=== PATIENT | female | born 1975 | race Caucasian/White ===

== ENCOUNTER 2017-04-26 16:43 | Inpatient (IN) ==
[2017-04-26] MEDS ORDERED: Ondansetron 4 MG/2 ML VIAL IVP ONE (19:17)
[2017-04-26] MEDS ORDERED: *HR* HYDROmorphone (PF) 1 MG/ML SYRINGE IVP ONE ×2 (19:17→21:45)
--- NOTE | 2017-04-26 19:19 | Emergency Department Note ---
Disposition Clinical Impression: Biliary dyskinesia, Right upper quadrant abdominal pain Disposition: Still a Patient Condition: Fair General Adult HPI - General Chief complaint: ED Abdominal Pain Stated complaint: Gastric pain Time Seen by Provider: 04/26/17 19:15 Source: patient Limitations: no limitations - History of Present Illness Pain Scale: 8 - Related Data Home Medications Medication Instructions Recorded Confirmed Atenolol [Tenormin] 25 mg PO DAILY 04/27/17 04/27/17 Dicyclomine [Bentyl] 20 mg PO QID 04/27/17 04/27/17 Duloxetine HCl [Cymbalta] 60 mg PO BID 04/27/17 04/27/17 Lactose-Reduced Food [Ensure 1 bottle PO AD 04/27/17 04/27/17 Active Clear] Losartan Potassium [Cozaar] 100 mg PO DAILY 04/27/17 04/27/17 Metformin HCl [Metformin HCl ER] 500 mg PO BID 04/27/17 04/27/17 Ondansetron [Zofran] 8 mg PO QID PRN 04/27/17 04/27/17 Oxycodone HCl/Acetaminophen 1 tab PO TID PRN 04/27/17 04/27/17 [Percocet 10-325 mg Tablet] Warfarin [Coumadin] 7.5 mg PO SUTUTHSA 04/27/17 04/27/17 Warfarin [Coumadin] 10 mg PO MOWEFR 04/27/17 04/27/17 hydrOXYzine HCl [Hydroxyzine HCl] 25 mg PO TID PRN 04/27/17 04/27/17 hydroCHLOROthiazide 12.5 mg PO DAILY 04/27/17 04/27/17 [Hydrochlorothiazide] Allergies Allergy/AdvReac Type Severity Reaction Status Date / Time morphine Allergy Itching Verified 04/27/17 08:40 amlodipine [From Norvasc] AdvReac See Verified 04/27/17 08:40 Comments metoclopramide [From Reglan] AdvReac Anxiety Verified 04/27/17 08:40 naproxen AdvReac Nausea Verified 04/27/17 08:40 Past Medical History - Past Medical History Medical history: Reports: DVT, diabetes, hypertension, kidney stones, other Surgical history: Reports: breast surgery Psychiatric history: Reports: depression STONE CLEANER history: Reports: no STONE CLEANER history - Social History Smoking Status: Never smoker Smokeless Tobacco Status: No Alcohol use: Reports: occasionally Drug use: Reports: none Physical Exam - General Limitations: no limitations General appearance: alert, in no apparent distress Course Vital Signs Temperature 97.9 F 04/26/17 17:36 Pulse Rate 100 04/26/17 17:36 Respiratory Rate 18 04/26/17 17:36 Blood Pressure 120/87 04/26/17 17:36 O2 Sat by Pulse Oximetry 98 04/26/17 17:36 Temperature 97.7 F 04/27/17 21:38 Pulse Rate 84 04/27/17 21:38 Respiratory Rate 17 04/27/17 21:38 Blood Pressure 139/85 04/27/17 21:38 O2 Sat by Pulse Oximetry 97 04/27/17 21:38 Oxygen Delivery Oxygen Delivery Room Air Medical Decision Making - Lab Data Result diagrams: 04/27/17 11:55 04/27/17 11:55 Lab Results 04/26/17 04/26/17 04/26/17 Range/Units 19:39 19:39 20:30 WBC 12.6 H (4.3-11.1) K/mcL RBC 5.11 H (3.82-4.97) M/mcL Hgb 14.6 (11.5-15.4) g/dL Hct 45.2 H (35.3-44.9) % MCV 88.5 (83.0-100.0) fL MCH 28.6 (28.0-33.3) pg MCHC 32.3 (31.6-35.5) g/dL RDW 14.4 (11.5-14.5) % Plt Count 527 H (140-400) K/mcL MPV 9.5 (9.4-12.4) fL Immature Gran % 0.3 (0-4) % Seg Neutrophils % 70.1 % Lymphocytes % 22.1 % Monocytes % 5.2 % Eosinophils % 2.1 % Basophils % 0.2 % Neutrophils # 8.8 (1.6-8.9) K/mcL Lymphocytes # 2.8 (0.6-4.6) K/mcL Monocytes # 0.7 (0.0-1.3) K/mcL Eosinophils # 0.3 (0.0-0.6) K/mcL Basophils # 0.0 (0.0-0.2) K/mcL PT 24.7 H (9.4-12.1) Seconds INR 2.3 Sodium 139 (136-145) mEq/L Potassium 4.3 (3.5-4.5) mEq/L Chloride 103 (98-109) mEq/L Carbon Dioxide 24 (19-29) mEq/L BUN 17 (7-20) mg/dL Creatinine 0.79 (0.57-1.11) mg/dL Est GFR ( Amer) > 60 (> 60) Est GFR (Non-Af Amer) > 60 (> 60) BUN/Creatinine Ratio 22 (6-26) Glucose 151 H (70-99) mg/dL Calculated Osmolality 292 (280-300) Calcium 9.5 (8.6-10.8) mg/dL Total Bilirubin < 0.2 L (0.2-1.2) mg/dL AST 17 (5-34) Units/L ALT 19 (0-55) Units/L Alkaline Phosphatase 137 H (38-126) Units/L Serum Total Protein 8.0 (6.0-8.3) g/dL Albumin 3.5 (3.5-5.0) g/dL Globulin 4.5 H (2.4-3.5) g/dL Albumin/Globulin Ratio 0.8 L (1.1-2.2) Lipase 22 (8-78) Units/L Attestation Statement - Attestation Attestation: I examined this patient and my medical decision-making was reviewed with the Resident Physician. I agree with the documented findings, disposition and treatment plan as described except to the extent set forth below. [id number] time provided Patient states she had a HIDA scan showing biliary ejection fraction of 9%. She was referred to follow-up with the [facility] for surgery but does not have a scheduled surgery appointment until later this month. She states she is taking analgesics and antiemetics without relief. She cannot tolerate the pain any longer. She is holding her hand over her right upper quadrant at the time of my exam. 22:12: Dr. Florence, surgery, has evaluated the patient at bedside. He recommends a gallbladder ultrasound. Care will be endorsed to Dr. Rome at 23:00 pending ultrasound and completion of surgical consultation
--- NOTE | 2017-04-26 19:26 | Emergency Department Note ---
Disposition Clinical Impression: Biliary dyskinesia, Right upper quadrant abdominal pain Disposition: Still a Patient Condition: Fair Instructions: Biliary Colic (ED) Reasons to Return/Additional Instructions: Return to the emergency department if your symptoms persist or if you develop any new or concerning symptoms. Please follow-up with your physicians at the [place]. Please call the person tomorrow morning to attempt to schedule an appointment in the next week with a general surgeon for continued evaluation and management of your biliary dyskinesia. [facility]errals: [facility] [Primary Care Provider] - Forms: ED Satisfaction Letter, Work/School Release Abdominal Pain HPI - General Chief Complaint: ED Abdominal Pain Stated Complaint: Gastric pain Time Seen by Provider: 04/26/17 19:15 Source: patient Nursing Notes Reviewed: Yes Vital Signs Reviewed: Yes - History of Present Illness HPI Narrative: Mrs. Drew, a 42-year-old female who is a patient from the [facility], presents with right upper quadrant pain. Her symptoms began several months ago. Patient has had CT scan showing biliary sludge. Patient recently had a HIDA scan showing biliary ejection fraction 9.8%. She was referred to [facility] for surgery but her appointment to see a surgeon is at the end of the month with unknown surgery date. She now has symptoms constant regardless of by mouth intake. She is taking antieemetics and analgesics with no relief of her pain. She presents this emergency department because of the pain. Anticoagulant: Coumadin PMH: Hypertension, diabetes, history DVT, history nephrolithiasis PSH: Tonsillectomy Habits: Never smoker, no EtOH, no illicit Pain Scale: 8 - Related Data Home Medications Medication Instructions Recorded Confirmed Duloxetine HCl [Cymbalta] 60 mg PO BID 09/16/15 05/30/16 Warfarin [Coumadin] 7.5 mg PO 1800 09/16/15 05/30/16 metFORMIN [Glucophage] 500 mg PO BIDWM 09/16/15 05/30/16 traMADol [Ultram] 50 mg PO Q6HR PRN 12/18/15 05/30/16 Previous Rx's Medication Instructions Recorded Losartan/Hydrochlorothiazide 1 each PO DAILY #30 tablet 01/16/16 [Hyzaar 100-12.5 Tablet] Ciprofloxacin [Cipro] 500 mg PO BID #14 tablet 05/31/16 Docusate [Colace] 100 mg PO BID #60 capsule 05/31/16 OxyCODONE Immed Rel [Roxicodone 5 10 mg PO Q4H PRN #25 tablet 05/31/16 MG] Cephalexin [Keflex] 500 mg PO BID #12 capsule 12/01/16 Hyoscyamine SL [Levsin SL] 0.125 mg SL TID PRN #15 tab.subl 02/11/17 Nitrofurantoin (BID) [Macrobid] 100 mg PO BID #10 capsule 02/11/17 Ondansetron HCl [Zofran] 4 mg PO Q6H PRN #12 tablet 02/11/17 Dicyclomine [Bentyl] 10 mg PO QID PRN #30 capsule 02/26/17 Nitrofurantoin (BID) [Macrobid] 100 mg PO BID #14 capsule 02/26/17 Ondansetron HCl [Zofran] 4 mg PO Q6HR PRN #20 tablet 02/26/17 Cephalexin [Keflex] 500 mg PO Q6HR #40 capsule 03/12/17 Hyoscyamine SL [Levsin SL] 0.125 mg SL TID #15 tab.subl 03/27/17 Ondansetron ODT [Zofran ODT] 4 mg SL Q6HR 6 Days #24 tab.rapdis 04/03/17 Ondansetron ODT [Zofran ODT] 4 mg SL Q8HR PRN #12 tab.rapdis 04/11/17 Nitrofurantoin (BID) [Macrobid] 100 mg PO BID #14 capsule 04/19/17 Allergies Allergy/AdvReac Type Severity Reaction Status Date / Time amlodipine [From Norvasc] Allergy See Verified 04/18/17 20:55 Comments morphine Allergy Itching Verified 04/18/17 20:55 naproxen Allergy Nausea Verified 04/18/17 20:55 metoclopramide [From Reglan] AdvReac Anxiety Verified 04/18/17 20:55 All systems ED: reviewed and negative except as stated. 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 HEENT: No facial asymmetry. Head is normocephalic and atraumatic. Oral mucosa moist. Trachea midline. Cardiovascular: Heart regular rate and rhythm without clicks, rubs, gallops, or murmurs. No JVD. PMI nondisplaced. Respiratory: Symmetric chest rise with good respiratory effort. Bilateral breath sounds are clear without wheezing, crackles, or rhonchi. Abdomen: Obese. Bowel sounds present normoactive x-4 quadrants. Abdomen is soft, nondistended. Exquisite right upper quadrant tenderness with positive Chaudhari. No guarding. Psych: Patient's affect is appropriate for situation. - General Limitations: no limitations General appearance: alert, in no apparent distress Course Course Narrative: Patient presents with right upper quadrant pain. She has had these symptoms for the last 2 months. [facility] and has a report showing a HIDA scan performed within the last month showing gallbladder ejection fraction of 9.8%. Patient notes that this was performed because the remainder of the tests were relatively unremarkable however symptoms persisted. She does not have a history of gallstones but notes a history of biliary sludge. Patient has mild leukocytosis with elevated alkaline phosphatase. Remainder of lab work is unremarkable. I discussed the patient with the on-call general surgeon, Dr. Florence. He agrees to see this patient while she is in the ER. Dr. Johns is been called away several times to the operatory theater. Unsure what his final disposition is for the patient. Patient has been signed out to Dr. Merino and Dr. Rome with disposition pending by Dr. Florence. Patient is aware and updated the current situation. Gallbladder Ultrasound 04/26/17 22:11 IMPRESSION: Hepatic steatosis. D/ / Johnson Arthur MD / Johnson Arthur MD Interpreting Provider: Johnson Arthur MD Vital Signs Temperature 97.9 F 04/26/17 17:36 Pulse Rate 100 04/26/17 17:36 Respiratory Rate 18 04/26/17 17:36 Blood Pressure 120/87 04/26/17 17:36 O2 Sat by Pulse Oximetry 98 04/26/17 17:36 Temperature 97.9 F 04/26/17 17:36 Pulse Rate 57 04/26/17 21:00 Respiratory Rate 18 04/26/17 17:36 Blood Pressure 132/88 04/26/17 21:00 O2 Sat by Pulse Oximetry 97 04/26/17 21:00 Oxygen Delivery Oxygen Delivery Room Air Abdominal Pain - Lab Data Result diagrams: 04/26/17 19:39 04/26/17 20:30 Lab Results 04/26/17 04/26/17 04/26/17 Range/Units 19:39 19:39 20:30 WBC 12.6 H (4.3-11.1) K/mcL RBC 5.11 H (3.82-4.97) M/mcL Hgb 14.6 (11.5-15.4) g/dL Hct 45.2 H (35.3-44.9) % MCV 88.5 (83.0-100.0) fL MCH 28.6 (28.0-33.3) pg MCHC 32.3 (31.6-35.5) g/dL RDW 14.4 (11.5-14.5) % Plt Count 527 H (140-400) K/mcL MPV 9.5 (9.4-12.4) fL Immature Gran % 0.3 (0-4) % Seg Neutrophils % 70.1 % Lymphocytes % 22.1 % Monocytes % 5.2 % Eosinophils % 2.1 % Basophils % 0.2 % Neutrophils # 8.8 (1.6-8.9) K/mcL Lymphocytes # 2.8 (0.6-4.6) K/mcL Monocytes # 0.7 (0.0-1.3) K/mcL Eosinophils # 0.3 (0.0-0.6) K/mcL Basophils # 0.0 (0.0-0.2) K/mcL PT 24.7 H (9.4-12.1) Seconds INR 2.3 Sodium 139 (136-145) mEq/L Potassium 4.3 (3.5-4.5) mEq/L Chloride 103 (98-109) mEq/L Carbon Dioxide 24 (19-29) mEq/L BUN 17 (7-20) mg/dL Creatinine 0.79 (0.57-1.11) mg/dL Est GFR ( Amer) > 60 (> 60) Est GFR (Non-Af Amer) > 60 (> 60) BUN/Creatinine Ratio 22 (6-26) Glucose 151 H (70-99) mg/dL Calculated Osmolality 292 (280-300) Calcium 9.5 (8.6-10.8) mg/dL Total Bilirubin < 0.2 L (0.2-1.2) mg/dL AST 17 (5-34) Units/L ALT 19 (0-55) Units/L Alkaline Phosphatase 137 H (38-126) Units/L Serum Total Protein 8.0 (6.0-8.3) g/dL Albumin 3.5 (3.5-5.0) g/dL Globulin 4.5 H (2.4-3.5) g/dL Albumin/Globulin Ratio 0.8 L (1.1-2.2) Lipase 22 (8-78) Units/L
[2017-04-26 19:56] LABS: Basophils % 0.2 %; Eosinophils # 0.3 K/mcL (0.0-0.6); Eosinophils % 2.1 %; Hematocrit 45.2 % (35.3-44.9); Hemoglobin 14.6 g/dL (11.5-15.4); Immature Granulocytes % 0.3 % (0-4); Lymphocytes # 2.8 K/mcL (0.6-4.6); Lymphocytes % 22.1 %; Mean Corpuscular HGB Conc 32.3 g/dL (31.6-35.5); Mean Corpuscular Hemoglobin 28.6 pg (28.0-33.3); Mean Corpuscular Volume 88.5 fL (83.0-100.0); Mean Platelet Volume 9.5 fL (9.4-12.4); Monocytes # 0.7 K/mcL (0.0-1.3); Monocytes % 5.2 %; Neutrophils # 8.8 K/mcL (1.6-8.9); Platelet Count 527 K/mcL (140-400); Red Blood Count 5.11 M/mcL (3.82-4.97); Red Cell Distribution Width 14.4 % (11.5-14.5); Segmented Neutrophils % 70.1 %
[2017-04-26 19:58] LABS: INR 2.3; Prothrombin Time 24.7 Seconds (9.4-12.1)
[2017-04-26] MEDS ORDERED: 0.9 % Sodium Chloride 1,000 ML IVC ONE (20:49)
[2017-04-26 21:00] LABS: Alanine Aminotransferase 19 Units/L (0-55); Albumin 3.5 g/dL (3.5-5.0); Albumin/Globulin Ratio 0.8 (1.1-2.2); Alkaline Phosphatase 137 Units/L (38-126); Aspartate Amino Transferase 17 Units/L (5-34); BUN/Creatinine Ratio 22 (6-26); Blood Urea Nitrogen 17 mg/dL (7-20); Calcium 9.5 mg/dL (8.6-10.8); Carbon Dioxide 24 mEq/L (19-29); Chloride 103 mEq/L (98-109); Globulin 4.5 g/dL (2.4-3.5); Glucose 151 mg/dL (70-99); Lipase 22 Units/L (8-78); Osmolality,Calculated 292 (280-300); Potassium 4.3 mEq/L (3.5-4.5); Sodium 139 mEq/L (136-145); eGFR For African Americans > 60 (> 60); eGFR For Non-African Americans > 60 (> 60)
[2017-04-26 21:03] LABS: Bilirubin,Total < 0.2 mg/dL (0.2-1.2)
--- NOTE | 2017-04-26 22:46 | Emergency Department Note ---
START Narrative - START START: I examined this patient and my medical decision-making was reviewed with the Resident Physician. I agree with the documented findings, disposition and treatment plan as described except to the extent set forth below. accepted sign out from Dr. Reveles Plan is to followup on Galbladder US and inform Dr Florence of result and base dipsostion on his reccomendation. This is a 42 year old female who is [facility] and has a HIDA scan report that shows 9% ejection and has been diagnosed with biliary dyskinesia and ultimately was scheduled for surgery but then was cancelled due to a more emergent case taking precednence. Dr. Florence has evaluted patient and will base a recoomednation based on the Galbladder US. 2336: Dr. Florence has accepted ptient to his service.
[2017-04-27] MEDS ORDERED: 0.9 % Sodium Chloride 1,000 ML IVC ONE (00:31)
[2017-04-27] MEDS: Ondansetron 4 MG/2 ML VIAL IVP PRN ×3 (02:19→21:31)
[2017-04-27] MEDS: D5% in 0.9% NACL 1,000 ML IVC SCH ×2 (02:20→11:24)
[2017-04-27] MEDS: *HR* HYDROmorphone (PF) 1 MG/ML SYRINGE IVP PRN ×5 (02:20→21:31)
--- NOTE | 2017-04-27 03:01 | General Surg History&Physical ---
Date of Encounter: 04/27/17 Time of Encounter: 23:00 Assessment and Plan (1) Biliary dyskinesia Current Visit: Yes Status: Acute 42F with biliary dykineisa, no evidence of acute cholecystitis; - NPO - IVF - pain control - will investigate if she can have her surgery done here at [place] or if it has to be the [place]; - admit - DVT prophylaxis; no need for abx The assessment and plan as outlined above was discussed with the patient and/or family members who expressed understanding and agreement. All questions were answered. History of Present Illness Chief complaint: abdominal pain HPI: Ms. Drew is a 42 year old female with ongoing history of RUQ abdominal pain that is worst post prandially with radiation to her back. No associated fevers or chills, but she does report persistent nausea and PO intolerance. She was recenty diagnosed with biliary dyskinesia with plans to be evaluated with the [place] [facility]. However her symptoms are too severe to wait. Past Med Surg Social Fam HX - Past Medical History Medical history: DVT, diabetes, hypertension, kidney stones, other Psychiatric history: depression - Past Surgical History Surgical History: breast surgery - Social History Smoking Status: Never smoker Smokeless Tobacco Status: No Alcohol use: occasionally Drug use: none - Family History Mother Hx Family Endocrine Disorder: Yes (DM) Medications and Allergies Duloxetine HCl [Cymbalta] 60 mg PO BID 09/16/15 [History] Warfarin [Coumadin] 7.5 mg PO 1800 09/16/15 [History] metFORMIN [Glucophage] 500 mg PO BIDWM 09/16/15 [History] traMADol [Ultram] 50 mg PO Q6HR PRN 12/18/15 [History] Losartan/Hydrochlorothiazide [Hyzaar 100-12.5 Tablet] 1 each PO DAILY #30 tablet 01/16/16 [Rx] Ciprofloxacin [Cipro] 500 mg PO BID #14 tablet 05/31/16 [Rx] Docusate [Colace] 100 mg PO BID #60 capsule 05/31/16 [Rx] OxyCODONE Immed Rel [Roxicodone 5 MG] 10 mg PO Q4H PRN #25 tablet 05/31/16 [Rx] Cephalexin [Keflex] 500 mg PO BID #12 capsule 12/01/16 [Rx] Hyoscyamine SL [Levsin SL] 0.125 mg SL TID PRN #15 tab.subl 02/11/17 [Rx] Nitrofurantoin (BID) [Macrobid] 100 mg PO BID #10 capsule 02/11/17 [Rx] Ondansetron HCl [Zofran] 4 mg PO Q6H PRN #12 tablet 02/11/17 [Rx] Dicyclomine [Bentyl] 10 mg PO QID PRN #30 capsule 02/26/17 [Rx] Nitrofurantoin (BID) [Macrobid] 100 mg PO BID #14 capsule 02/26/17 [Rx] Ondansetron HCl [Zofran] 4 mg PO Q6HR PRN #20 tablet 02/26/17 [Rx] Cephalexin [Keflex] 500 mg PO Q6HR #40 capsule 03/12/17 [Rx] Hyoscyamine SL [Levsin SL] 0.125 mg SL TID #15 tab.subl 03/27/17 [Rx] Ondansetron ODT [Zofran ODT] 4 mg SL Q6HR 6 Days #24 tab.rapdis 04/03/17 [Rx] Ondansetron ODT [Zofran ODT] 4 mg SL Q8HR PRN #12 tab.rapdis 04/11/17 [Rx] Nitrofurantoin (BID) [Macrobid] 100 mg PO BID #14 capsule 04/19/17 [Rx] 3 Allergy/AdvReac Type Severity Reaction Status Date / Time amlodipine [From Norvasc] Allergy See Verified 04/18/17 20:55 Comments morphine Allergy Itching Verified 04/18/17 20:55 naproxen Allergy Nausea Verified 04/18/17 20:55 metoclopramide [From Reglan] AdvReac Anxiety Verified 04/18/17 20:55 Review of Systems All systems PM: A 10-system review of systems was performed and is negative for pertinent findings except as documented above in the HPI. General Surgery Exam Initial Vital Signs Temp Pulse Resp BP Pulse Ox 97.9 F 100 18 120/87 98 04/26/17 17:36 04/26/17 17:36 04/26/17 17:36 04/26/17 17:36 04/26/17 17:36 - General physical appearance well developed, well nourished, no distress - Eyes other (no scleral icterus) - ENT normocephalic - Respiratory normal expansion, normal respiratory effort, clear to auscultation - Cardiovascular Cardiovascular exam: Present: RRR - Abdomen Abdomen general surgery: Present: soft, tender Abdominal Tenderness: Present: RUQ ((-)cabrera's sign; ) - Integumentary Integumentary general surgery: Present: warm and dry, no abnormal pigmentation - Neurologic Present: CN 2-12 grossly intact - Musculoskeletal Present: other (FROM in UE/LE bilaterally) - Psychiatric Psychiatric general surgery: Present: A&Ox3 Results - Labs 04/26/17 19:39 04/26/17 20:30 Abnormal lab results WBC 12.6 K/mcL (4.3-11.1) H 04/26/17 19:39 RBC 5.11 M/mcL (3.82-4.97) H 04/26/17 19:39 Hct 45.2 % (35.3-44.9) H 04/26/17 19:39 Plt Count 527 K/mcL (140-400) H 04/26/17 19:39 PT 24.7 Seconds (9.4-12.1) H 04/26/17 19:39 Glucose 151 mg/dL (70-99) H 04/26/17 20:30 Total Bilirubin < 0.2 mg/dL (0.2-1.2) L 04/26/17 20:30 Alkaline Phosphatase 137 Units/L (38-126) H 04/26/17 20:30 Globulin 4.5 g/dL (2.4-3.5) H 04/26/17 20:30 Albumin/Globulin Ratio 0.8 (1.1-2.2) L 04/26/17 20:30 All other labs normal. - Imaging US - abdomen: report reviewed, image reviewed (reviewed and interpreted personally by me and confirmed with radiology; no pericholecystic fluid, no gb wall thickening;)
[2017-04-27] MEDS: Pantoprazole 40 MG VIAL IVP SCH (07:42)
--- NOTE | 2017-04-27 10:47 | General Surgery Progress Note ---
Date of Encounter: 04/27/17 Time of Encounter: 10:44 - Assessment and Plan (1) Biliary dyskinesia Current Visit: Yes Status: Acute 42F h/o factor V leiden, prior dvts on coumadin, DM, HTN, OA with biliary dyskinesia; - NPO IVF no abx reverse INR, start hep gtt when less than 2.0 plan for OR on tuesday Subjective Patient reports: no new complaints, feels better, still having pain Objective Vital Signs - Last 8 Hours Temp Pulse Resp BP Pulse Ox 04/27/17 09:00 98.4 F 93 15 105/65 96 04/27/17 04:25 97.8 F 89 17 116/56 91 Intake and Output 04/26/17 04/27/17 04/27/17 23:59 07:59 15:59 Intake Total 0 / 0 Output Total 0 / 0 Balance 0 / 0 Intake: Oral 0 / 0 Output: Urine 0 / 0 Other: Weight 141.4 kg Patient Weight 04/27/17 23:59 Weight 141.4 kg - General physical appearance well developed, well nourished, no distress - Eyes other (no scleral icterus) - ENT normocephalic - Respiratory normal expansion, normal respiratory effort - Cardiovascular Cardiovascular exam: Present: RRR - Abdomen Abdomen: Present: soft, tender Abdominal Tenderness: RUQ (non peritoneal, neg cabrera's sign) - Integumentary no rash - Neurologic CN 2-12 grossly intact - Psychiatric oriented to time, oriented to person - Labs 04/27/17 11:55 04/27/17 11:55 - Imaging US - abdomen: report reviewed, image reviewed (no evidence of cholecystitis nor choledocholithiasis; reviewed and interpreted by me personally) Consult Discharge Plan - Plan [facility]errals: [facility] [Primary Care Provider] -
[2017-04-27 12:06] LABS: Basophils % 0.2 %; Eosinophils # 0.3 K/mcL (0.0-0.6); Eosinophils % 2.7 %; Immature Granulocytes % 0.4 % (0-4); Lymphocytes # 1.9 K/mcL (0.6-4.6); Mean Corpuscular HGB Conc 32.6 g/dL (31.6-35.5); Mean Corpuscular Hemoglobin 28.9 pg (28.0-33.3); Mean Corpuscular Volume 88.6 fL (83.0-100.0); Mean Platelet Volume 9.4 fL (9.4-12.4); Monocytes # 0.6 K/mcL (0.0-1.3); Monocytes % 6.4 %; Platelet Count 365 K/mcL (140-400); Red Cell Distribution Width 14.7 % (11.5-14.5); Segmented Neutrophils % 71.3 %
[2017-04-27 12:07] LABS: Hemoglobin 12.7 g/dL (11.5-15.4)
[2017-04-27 12:20] LABS: Alanine Aminotransferase 17 Units/L (0-55); Albumin 2.9 g/dL (3.5-5.0); Albumin/Globulin Ratio 0.8 (1.1-2.2); Alkaline Phosphatase 114 Units/L (38-126); Aspartate Amino Transferase 16 Units/L (5-34); BUN/Creatinine Ratio 20 (6-26); Bilirubin,Total 0.5 mg/dL (0.2-1.2); Blood Urea Nitrogen 15 mg/dL (7-20); Calcium 8.1 mg/dL (8.6-10.8); Carbon Dioxide 24 mEq/L (19-29); Chloride 104 mEq/L (98-109); Globulin 3.7 g/dL (2.4-3.5); Glucose 129 mg/dL (70-99); Osmolality,Calculated 287 (280-300); Potassium 4.1 mEq/L (3.5-4.5); Sodium 137 mEq/L (136-145); Total Protein 6.6 g/dL (6.0-8.3); eGFR For African Americans > 60 (> 60); eGFR For Non-African Americans > 60 (> 60)
[2017-04-27 12:26] LABS: INR 2.2; Prothrombin Time 24.1 Seconds (9.4-12.1)
[2017-04-27] MEDS ORDERED: 0.9 % Sodium Chloride 250 ML ONE (17:55)
[2017-04-27 22:43] LABS: INR 1.7
[2017-04-27] MEDS ORDERED: Heparin 25,000 UNIT/500 ML D5W 25,000 UNIT/500 ML MLS IVC SCH (23:45)
[2017-04-27] MEDS ORDERED: *HR* Heparin 5,000 UNIT/ML VIAL IVP PRN ×2 (23:58)
[2017-04-27] MEDS ORDERED: *HR* Heparin 5,000 UNIT/ML VIAL IVP ONE (23:58)
[2017-04-28] MEDS: *HR* HYDROmorphone (PF) 1 MG/ML SYRINGE IVP PRN ×6 (00:32→22:24)
[2017-04-28 02:23] LABS: Activated Partial Thrombo Time 33.9 Seconds (26.0-36.0)
[2017-04-28] MEDS: Heparin 25,000 UNIT/500 ML D5W 25,000 UNIT/500 ML MLS IVC SCH ×2 (02:42→16:32)
[2017-04-28] MEDS: Ondansetron 4 MG/2 ML VIAL IVP PRN (09:20)
[2017-04-28] MEDS: Pantoprazole 40 MG VIAL IVP SCH (09:20)
[2017-04-28 09:53] LABS: Activated Partial Thrombo Time 190.5 Seconds (26.0-36.0)
[2017-04-28 09:54] LABS: Heparin anti-factor XA UFH 0.95 IU/mL (0.30-0.70)
--- NOTE | 2017-04-28 13:53 | General Surgery Progress Note ---
Date of Encounter: 04/28/17 Time of Encounter: 11:30 - Assessment and Plan (1) Biliary dyskinesia Current Visit: Yes Status: Acute 42F h/o factor V leiden, prior dvts on coumadin, DM, HTN, OA with biliary dyskinesia; - CLD, NPO at midnight IVF at midnight no abx - hold hep gtt at 0600 - consent for surgery plan for OR on tuesday (2) DVT prophylaxis Current Visit: Yes Status: Acute factor V leiden, on coumadin at [facility] - currently subtherapeutic - cont hep gtt - hold at 0600 in prep for surgery (3) Depression Current Visit: Yes Status: Acute cont cymbalta 60mg BID; her home med Qualifiers: Depression Type: unspecified Qualified Code(s): F32.9 - Major depressive disorder, single episode, unspecified (4) Hypertension Current Visit: Yes Status: Acute cont home meds: cozaar, atenolol Qualifiers: Hypertension type: essential hypertension Qualified Code(s): I10 - Essential (primary) hypertension (5) Diabetes Current Visit: Yes Status: Acute hold metformin while in patient; cont to trend blood sugars; - hold IVF due to patient taking diet Qualifiers: Diabetes mellitus type: type 2 Diabetes mellitus complication status: with unspecified complications Diabetes mellitus computer terminal operator insulin use: with computer terminal operator use Qualified Code(s): E11.8 - Type 2 diabetes mellitus with unspecified complications; 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; Z79.4 - prison ( current) use of insulin; 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 [id number] [facility] Rx#:[id number] Oral 300 / 300 118 / 118 Blood Product 315 / 315 Plasma Unit [id number] 315 / 315 Free Water 850 / 850 Other: Meal Breakfast Percent of Meal Consumed 100% # Voids 1 Blood Glucose* 101 127 - General physical appearance well developed, well nourished, obese (morbid obesity) - Respiratory normal expansion, normal respiratory effort - Abdomen Abdomen: Present: soft, tender - Integumentary no rash - Neurologic CN 2-12 grossly intact - Psychiatric oriented to time, oriented to person - Labs 04/27/17 11:55 04/27/17 11:55 Consult Discharge Plan - Plan [facility]errals: [facility] [Primary Care Provider] -
--- NOTE | 2017-04-28 22:19 | Anesthesia Evaluation PreOp ---
<SinanMeeta - Last Filed: 04/28/17 22:17> Date of Encounter: 04/28/17 - Past History Planned Operation: Lap Mary re: Biliary dyskinesia Cardiac History: HTN (maintained on Losartan/Hctz), Hyperlipidemia [employer] History: Other (Anxiety/Depression maintained on Cymbalta) Other Medical History: Renal (Hx kidney stones), Bleeding (Hx DVT maintained on Coumadin), Diabetes Type II (maintained on Metformin), Other (MO/BMI = 52) Anesthesia History: No Prior Anesthetic Complications, Past Anesthesia (Breat surgery) Alcohol Use: occasionally Drug use: none Medications and Allergies Atenolol [Tenormin] 25 mg PO DAILY 04/27/17 [History] Dicyclomine [Bentyl] 20 mg PO QID 04/27/17 [History] Duloxetine HCl [Cymbalta] 60 mg PO BID 04/27/17 [History] Lactose-Reduced Food [Ensure Active Clear] 1 bottle PO AD 04/27/17 [History] Losartan Potassium [Cozaar] 100 mg PO DAILY 04/27/17 [History] Metformin HCl [Metformin HCl ER] 500 mg PO BID 04/27/17 [History] Ondansetron [Zofran] 8 mg PO QID PRN 04/27/17 [History] Oxycodone HCl/Acetaminophen [Percocet 10-325 mg Tablet] 1 tab PO TID PRN [History] Warfarin [Coumadin] 7.5 mg PO SUTUTHSA 04/27/17 [History] Warfarin [Coumadin] 10 mg PO MOWEFR 04/27/17 [History] hydrOXYzine HCl [Hydroxyzine HCl] 25 mg PO TID PRN 04/27/17 [History] hydroCHLOROthiazide [Hydrochlorothiazide] 12.5 mg PO DAILY 04/27/17 [History] 3 Allergy/AdvReac Type Severity Reaction Status Date / Time morphine Allergy Itching Verified 04/27/17 08:40 amlodipine [From Norvasc] AdvReac See Verified 04/27/17 08:40 Comments metoclopramide [From Reglan] AdvReac Anxiety Verified 04/27/17 08:40 naproxen AdvReac Nausea Verified 04/27/17 08:40 - Meds/Allergy Pre-op Review Medications Reviewed: Yes Allergies Reviewed: Yes Beta Blockers on Current Med List: No Anesthesia Results - Labs 04/27/17 11:55 04/27/17 11:55 Laboratory Results Impressions Gallbladder Ultrasound 04/26/17 22:11 IMPRESSION: Hepatic steatosis. D/ / Johnson Arthur MD / Johnson Arthur MD Interpreting Provider: Johnson Arthur MD Anesthesia Exam Vital Signs Temp Pulse Resp BP Pulse Ox 04/28/17 20:18 98.1 F 62 14 121/79 96 04/28/17 17:30 97.4 F L 59 15 126/84 97 04/28/17 13:44 97.9 F 85 16 120/81 97 04/28/17 08:50 98.0 F 75 15 143/86 96 04/27/17 23:00 97.9 F 79 17 151/76 96 Intake and Output 04/28/17 04/28/17 04/28/17 07:59 15:59 23:59 Intake Total 850 / 850 392 / 392 212 / 212 Balance 850 / 850 392 / 392 212 / 212 Intake: IV Fluids 274 / 274 212 / 212 Heparin 25,000 UNIT/500 ML D5W 274 / 274 212 / 212 25,000 unit In 500 ml @ 14 UNIT /KG/HR 39.592 mls/hr IVC . [id number] [facility] Rx#:[id number] Oral 118 / 118 Free Water 850 / 850 Other: Meal Breakfast Percent of Meal Consumed 100% Blood Glucose* 127 117 - HEENT Pupil (Motor): Pupils equal Anesthesia Assess/Plan ASA Score: 3 (HTN, Chol, DM, MO/BMI = 52) Modified [place] Scale for Level of Consciousness: Cooperative, oriented, and tranquil Anesthetic Plan: General Autologous Blood: Yes Monitoring Plan: Standard Monitors Recovery Plan: PACU <David Reeder - Last Filed: 04/29/17 12:55> Date of Encounter: 04/29/17 Time of Encounter: 12:45 - Past History Pulmonary History: Denies Any Significant HX [employer] History: Other Other Medical History: Renal, Bleeding, Other : No Test: Negative (04/29/17) Anesthesia Results - Labs 04/27/17 11:55 04/27/17 11:55 Laboratory Tests 04/29/17 11:55 Urine Test Negative - Imaging EKG: image reviewed (SR) Anesthesia Exam Vital Signs/O2 Sat, Most Current Temp Pulse Resp BP Pulse Ox 98.1 F 79 14 128/78 99 04/29/17 10:31 04/29/17 10:31 04/29/17 10:31 04/29/17 10:31 04/29/17 10:31 Height: 5'5'' Weight: 311# NPO (# of Hours): > 8 hrs Pain Scale: 0 Pain Scale Used: Numeric (1 - 10) - HEENT Pupil (Motor): Pupils equal, EOMI Mallampati: III Teeth: Normal Oral Opening: Greater than 3 - [employer] LOC: Oriented [employer] Motor: Normal RUE, Normal LUE, Normal RLE, Normal LLE, Normal Face [employer] Sensory: Normal: RUE, LUE, RLE, LLE, Face - Cardiac Rhythm: Regular Murmur: None JVD: No Carotid Bruit: No - Pulmonary Breath Sounds: bilateral Clear Respiratory Effort: Symmetrical
[2017-04-29] MEDS: *HR* HYDROmorphone (PF) 1 MG/ML SYRINGE IVP PRN ×4 (02:39→15:11)
[2017-04-29] MEDS: Ondansetron 4 MG/2 ML VIAL IVP PRN (02:48)
[2017-04-29] MEDS: Heparin 25,000 UNIT/500 ML D5W 25,000 UNIT/500 ML MLS IVC SCH (07:53)
[2017-04-29] MEDS: Pantoprazole 40 MG VIAL IVP SCH (08:06)
[2017-04-29 08:22] LABS: INR 1.3; Prothrombin Time 14.5 Seconds (9.4-12.1)
[2017-04-29 08:24] LABS: Activated Partial Thrombo Time 30.9 Seconds (26.0-36.0)
--- NOTE | 2017-04-29 10:13 | General Surgery Progress Note ---
Date of Encounter: 04/29/17 Time of Encounter: 10:12 - Assessment and Plan (1) Biliary dyskinesia Current Visit: Yes Status: Acute 42F h/o factor V leiden, prior dvts on coumadin, DM, HTN, OA with biliary dyskinesia; OR today (2) DVT prophylaxis Current Visit: Yes Status: Acute factor V leiden, on coumadin at [facility] today (3) Depression Current Visit: Yes Status: Acute cont cymbalta 60mg BID; her home med Qualifiers: Depression Type: unspecified Qualified Code(s): F32.9 - Major depressive disorder, single episode, unspecified (4) Hypertension Current Visit: Yes Status: Acute cont home meds: cozaar, atenolol Qualifiers: Hypertension type: essential hypertension Qualified Code(s): I10 - Essential (primary) hypertension (5) Diabetes Current Visit: Yes Status: Acute hold metformin while in patient; cont to trend blood sugars; - hold IVF due to patient taking diet Qualifiers: Diabetes mellitus type: type 2 Diabetes mellitus complication status: with unspecified complications Diabetes mellitus snf insulin use: with snf use Qualified Code(s): E11.8 - Type 2 diabetes mellitus with unspecified complications; Z79.4 - [facility] (current) use of insulin; Z79.4 - [employer] customer [employer] ( current) use of insulin; Z79.4 - [employer] customer service (current) use of insulin; Z79.4 - [facility] (current) use of insulin Subjective Patient reports: no new complaints, feels better, still having pain, pain is less Objective Vital Signs - Last 8 Hours Temp Pulse Resp BP Pulse Ox 04/29/17 07:19 98.6 F 81 16 132/83 93 04/29/17 05:08 97.5 F L 66 14 133/77 95 Intake and Output 04/28/17 04/29/17 04/29/17 23:59 07:59 15:59 Intake Total 453 / 453 Balance 453 / 453 Intake: IV Fluids 453 / 453 Heparin 25,000 UNIT/500 ML D5W 453 / 453 25,000 unit In 500 ml @ 14 UNIT /KG/HR 39.592 mls/hr IVC . [id number] [facility] Rx#:[id number] Other: # Voids 6 2 Blood Glucose* 117 109 - General physical appearance well developed, well nourished, no distress - Respiratory normal expansion, normal respiratory effort - Cardiovascular Cardiovascular exam: Present: RRR - Abdomen Abdomen: Present: soft, tender Abdominal Tenderness: RUQ - Neurologic CN 2-12 grossly intact - Psychiatric oriented to time, oriented to person, oriented to place - Labs 04/27/17 11:55 04/27/17 11:55 Consult Discharge Plan - Plan [facility]errals: [facility] [Primary Care Provider] -
[2017-04-29] MEDS ORDERED: Ondansetron 4 MG/2 ML VIAL ONE (12:50)
[2017-04-29] MEDS ORDERED: *HR* FentaNYL (PF) 100 MCG/2 ML VIAL ONE (12:50)
[2017-04-29] MEDS ORDERED: *HR* Rocuronium Bromide 50 MG/5 ML VIAL ONE (12:50)
[2017-04-29] MEDS ORDERED: *HR* Midazolam HCl 2 MG/2 ML VIAL ONE (12:50)
[2017-04-29] MEDS ORDERED: Neostigmine Methylsulfate 3 MG/3 ML SYRINGE ONE (12:50)
[2017-04-29] MEDS ORDERED: *HR* Propofol 200 MG/20 ML VIAL IVP ONE (12:50)
[2017-04-29] MEDS ORDERED: *HR* Succinylcholine 200 MG/10 ML VIAL IVP ONE (12:50)
[2017-04-29] MEDS ORDERED: Dexamethasone 4 MG/ML VIAL ONE (12:50)
[2017-04-29] MEDS ORDERED: Lidocaine -MPF 2% 2 ML VIAL ONE (12:51)
[2017-04-29] MEDS ORDERED: *HR* Promethazine 25 MG/ML VIAL IVP PRN ×2 (14:12→17:58)
[2017-04-29] MEDS ORDERED: *HR* Meperidine 25 MG/ML SYRINGE IVP PRN ×2 (14:12→17:58)
[2017-04-29] MEDS ORDERED: Ondansetron 4 MG/2 ML VIAL IVP PRN ×3 (14:12→17:58)
[2017-04-29] MEDS ORDERED: Naloxone 0.4 MG/ML INJ IVP PRN ×2 (14:12→17:58)
[2017-04-29] MEDS ORDERED: *HR* OxyCODONE/APAP 10/325 TABLET PO PRN ×2 (16:46→17:58)
[2017-04-29] MEDS ORDERED: hydrOXYzine pamoate 25 MG CAPSULE PO PRN (17:58)
[2017-04-29] MEDS ORDERED: *HR* Warfarin 7.5 MG TABLET PO SCH ×2 (18:00)
[2017-04-29] MEDS: *HR* OxyCODONE/APAP 10/325 TABLET PO PRN (18:48)
[2017-04-29] MEDS ORDERED: *HR* Warfarin 5 MG TABLET PO SCH (19:30)
[2017-04-29] MEDS: *HR* Enoxaparin 150 MG/ML SYRINGE SQ SCH (20:12)
[2017-04-29] MEDS ORDERED: Heparin 25,000 UNIT/500 ML D5W 25,000 UNIT/500 ML MLS IVC SCH (20:45)
[2017-04-29] MEDS ORDERED: Enoxaparin Weight Dosing SQ SCH (20:45)
[2017-04-30] MEDS: *HR* OxyCODONE/APAP 10/325 TABLET PO PRN (00:41)
[2017-04-30] MEDS ORDERED: Ketorolac 15 MG/ML VIAL IVP ONE (02:03)
[2017-04-30] MEDS ORDERED: *HR* OxyCODONE/APAP 10/325 TABLET PO PRN (02:08)
[2017-04-30] MEDS ORDERED: Enoxaparin Weight Dosing SQ SCH (08:00)
[2017-04-30] MEDS ORDERED: Pantoprazole 40 MG VIAL IVP SCH (09:00)
[2017-04-30] MEDS ORDERED: hydroCHLOROthiazide 25 MG TABLET PO SCH (09:00)
[2017-04-30] MEDS ORDERED: NON-FORMULARY MEDICATION 1 EACH EACH (Losartan Potassium [Cozaar] 100 MG) PO SCH (09:00)
[2017-04-30] MEDS: *HR* Enoxaparin 150 MG/ML SYRINGE SQ SCH (09:14)
[2017-04-30 11:49] VITALS: BP 113/69
--- NOTE | 2017-04-30 12:55 | Discharge Summary ---
Date of Encounter: 04/30/17 Time of Encounter: 12:50 - Discharge Diagnosis (1) Biliary dyskinesia Priority: Primary Status: Acute Comments: The patient has had laparoscopic cholecystectomy. (2) Factor 5 Leiden mutation, heterozygous Priority: Secondary Status: Acute Comments: The patient will require outpatient Coumadin therapy with Lovenox bridge therapy. - Discharge Medications Prescriptions: OxyCODONE/APAP 10/325 [Percocet 10/325 MG] 1 each PO Q6HR PRN #24 tablet PRN Reason: Pain Enoxaparin [Lovenox] 140 mg SQ Q12H #10 syringe Home Medications: Atenolol [Tenormin] 25 mg PO DAILY 04/27/17 [History] Dicyclomine [Bentyl] 20 mg PO QID 04/27/17 [History] Duloxetine HCl [Cymbalta] 60 mg PO BID 04/27/17 [History] Lactose-Reduced Food [Ensure Active Clear] 1 bottle PO AD 04/27/17 [History] Losartan Potassium [Cozaar] 100 mg PO DAILY 04/27/17 [History] Metformin HCl [Metformin HCl ER] 500 mg PO BID 04/27/17 [History] Ondansetron [Zofran] 8 mg PO QID PRN 04/27/17 [History] Oxycodone HCl/Acetaminophen [Percocet 10-325 mg Tablet] 1 tab PO TID PRN [History] Warfarin [Coumadin] 7.5 mg PO SUTUTHSA 04/27/17 [History] Warfarin [Coumadin] 10 mg PO MOWEFR 04/27/17 [History] hydrOXYzine HCl [Hydroxyzine HCl] 25 mg PO TID PRN 04/27/17 [History] hydroCHLOROthiazide [Hydrochlorothiazide] 12.5 mg PO DAILY 04/27/17 [History] Enoxaparin [Lovenox] 140 mg SQ Q12H #10 syringe 04/30/17 [Rx] OxyCODONE/APAP 10/325 [Percocet 10/325 MG] 1 each PO Q6HR PRN #24 tablet [Rx] Allergies/Adverse Reactions: 3 Allergy/AdvReac Type Severity Reaction Status Date / Time morphine Allergy Itching Verified 04/27/17 08:40 amlodipine [From Norvas] AdvReac See Verified 04/27/17 08:40 Comments metoclopramide [From Reglan] AdvReac Anxiety Verified 04/27/17 08:40 naproxen AdvReac Nausea Verified 04/27/17 08:40 General Surgery Exam Initial Vital Signs Temp Pulse Resp BP Pulse Ox 97.9 F 100 18 120/87 98 04/26/17 17:36 04/26/17 17:36 04/26/17 17:36 04/26/17 17:36 04/26/17 17:36 - General physical appearance well developed, well nourished, no distress, obese - Respiratory normal expansion, normal respiratory effort, clear to percussion, clear to auscultation - Cardiovascular Cardiovascular exam: Present: RRR, 15, 16 - Abdomen Abdomen general surgery: Present: bowel sounds present, soft, non tender - Incision Incision: Present: clean and dry, intact - Neurologic Present: CN 2-12 grossly intact, normal coordination, normal sensation - Psychiatric Psychiatric general surgery: Present: appropriate, oriented to person, oriented to place, oriented to time, speech is normal, memory intact Date of admission: 04/28/17 16:49 Primary care physician: [facility] Discharging clinician: Viraj Gonzalez Anticipated date of discharge: 04/30/17 - Patient Status Disposition: Home, Self-Care Condition: Fair Functional capacity at discharge: independent ambulation Overall status at discharge: patient is back to baseline - Discharge Instructions [facility] With: [facility] [[facility] Care Provider] - Additional Instructions: Continue taking Coumadin 7.5 mg once a day. Please make an appointment to see the [facility] for anticoagulation management prior to 5 days after discharge. Lovenox was provided for 5 days. - Diet and Activity Activity: increase activity as tolerated Diet: advance to your usual diet - Hospital Course Hospital course: Ms. Drew is a 42 year old female With factor V Leiden deficiency. She was admitted to the hospital with right upper quadrant pain and laparoscopic cholecystectomy. She had heparin bridge therapy after reversal of her Coumadin anticoagulation therapy. He heparin bridge therapy was reinitiated with Lovenox 140 mg every 12. She is to take her Coumadin. She is to follow up with the [facility]. She is given a 5 day supply of Lovenox. - Time Spent with Patient Total time spent providing and/or coordinating discharge services: Less than 30 minutes Specific discharge activities: Confirm Lovenox orders were received at the [facility]. Confirm that she has follow-up appointment with [facility] to manage her anticoagulation. Labs on day of discharge: Labs from last 24 hours 04/29/17 04/28/17 16:31 20:24 POC Glucose 162 H 117 H
[2017-04-30] MEDS ORDERED: *HR* Warfarin 7.5 MG TABLET PO SCH (18:00)
--- NOTE | 2017-05-02 13:53 | Operative Note ---
Date of procedure: 04/29/17 Pre-op diagnosis: biliary dyskinesia Post-op diagnosis: same Procedure: laparoscopic cholecystectomy Implants: none Complications: none Anesthesia: GETA Local Anesthetics: 0.5% Sensorcaine HCL SubQ (cc) Surgeon: Prashanth [place] Sales Representative: Gill Reed Specimen: gallbladder Condition: stable Disposition: PACU Procedure in Detail: The patient was brought into the operating room suite and was placed in the supine position. Mechanical DVT prophylaxis was applied. A time-in was conducted. The patient underwent smooth induction of anesthesia. Preoperative antibiotics were given. The patient was prepped and draped in the usual fashion. A time-out was held identifying the correct patient, pathology, and procedure. Everyone was in agreement and we began the procedure. Incision to Dissection I started by creating a 10mm supraumbilical incision. Via open Yoon technique I did enter into the abdomen. This portion required careful dissection and time due to the depth of tissue. Using a Vicryl on a UR-6 needle , I reapproximated, but did not close the fascia in a [id number] fashion. I inserted the 10mm, 30 degree camera, ensured that I did not cause intraabdominal injury upon entry, and quickly identified the gallbladder. It does possess a 'freddie's egg blue' hue. I created a 5mm incision in the epigastric region followed by two more 5mm incision, one at the midclavicular line, the last at the anterior axillary line. Using laparoscopic graspers I managed to elevate the gallbladder above the liver. I grasp the edge of the gallbladder to retract laterally. Using the [place] instrument as well as the hook-electrocautery, I dissected out the cystic duct and the cystic artery. I excised the posterior tissue to visualize the liver. I was able to clearly visualize the critical view of safety. Critical view of Safety to Excison of the gallbladder I then clipped both structures using metal clips, two on the stay side, one on the specimen side. Using laparoscopic scissors, I cut between the clip on the specimen side and the first clip on the stay side. Then using tension and counter-tension, I used the electrocautery to excise the gallbladder off of the liver bed. Before complete excision, I evaluated the liver bed to ensure there 1.) there was no bleeding, 2. No excessive bile leakage, and 3.) to evaluate my clips. There was no bleeding, bile leakage, and the clips were all the way across both duct and artery. Removal of gallbladder to Closure I switched out the 10mm camera fo the 5mm camera and inserted the endocatch bag into the umbilical port. I placed the specimen into the bag and retrieved it through the umbilical port. I replaced the 5mm camera with the 10mm camera, irrgiated the liver bed and above the liver before suctioning both irrigation fluid and air. I removed the 5mm ports, turned off the insufllation, then removed the 10mm umbilical port. I then close the umbilical fascia using the vicryl suture from the start. All incisions were closed with interrupted 4-0 monocryl and sealed with dermabond. The patient tolerated the procedure well and went back to PACU in stable condition.
== END 2017-04-30 15:15 | disposition home or self-care (01) | DRG 418 ==
LOC: EMEROO 16:43 → 3NENU 16:43
PROVIDERS: ADMIT Surgery; ATTEND Surgery

== ENCOUNTER 2017-05-09 20:52 | Observation (INO) ==
[2017-05-09] MEDS ORDERED: Ondansetron 4 MG/2 ML VIAL IVP ONE (23:05)
[2017-05-09] MEDS ORDERED: 0.9 % Sodium Chloride 1,000 ML IVC ONE (23:05)
[2017-05-09] MEDS ORDERED: *HR* HYDROmorphone (PF) 1 MG/ML SYRINGE IVP ONE (23:05)
--- NOTE | 2017-05-09 23:20 | Emergency Department Note ---
Disposition Clinical Impression: Postoperative abscess Disposition: Admitted As Inpatient Condition: Good [facility] Care Provider[facility] - Forms: ED Satisfaction Letter Time of Disposition: 00:48 General Adult HPI - General Chief complaint: ED Recheck/Abnormal Lab/Rx Stated complaint: Surgical site infection/pain Time Seen by Provider: 05/09/17 22:49 Source: patient Limitations: no limitations Nursing Notes Reviewed: Yes Vital Signs Reviewed: Yes - History of Present Illness HPI Narrative: 42 year old female s/p lap geoffrey with Dr. serrano present to the ED with complaints of foul smelling drainage from the wound. Kristopher states that she is a diabetic and was seen here on Tuesday after being evaluated at the [facility] where they did a CT abp wit IV contrast that showed a fluid pocket behind the umbilical laproscopic incsion which was drained at bedside with the results with seroangioneous material and no abscess. She was not sent home on antivitiocs. Kristopher states that she returns with incresasingly redness to the incsion site in addition to foul smelling discharge and drainage wihtou tthe smell of psuedomonas. Kristopher is concerned that it is re-infected. She states that she had a fever of 101F at home and mild nausea. Pain Scale: 4 - Related Data Home Medications Medication Instructions Recorded Confirmed Atenolol [Tenormin] 25 mg PO DAILY 04/27/17 04/27/17 Dicyclomine [Bentyl] 20 mg PO QID 04/27/17 04/27/17 Duloxetine HCl [Cymbalta] 60 mg PO BID 04/27/17 04/27/17 Lactose-Reduced Food [Ensure 1 bottle PO AD 04/27/17 04/27/17 Active Clear] Losartan Potassium [Cozaar] 100 mg PO DAILY 04/27/17 04/27/17 Metformin HCl [Metformin HCl ER] 500 mg PO BID 04/27/17 04/27/17 Ondansetron [Zofran] 8 mg PO QID PRN 04/27/17 04/27/17 Oxycodone HCl/Acetaminophen 1 tab PO TID PRN 04/27/17 04/27/17 [Percocet 10-325 mg Tablet] Warfarin [Coumadin] 7.5 mg PO SUTUTHSA 04/27/17 04/27/17 Warfarin [Coumadin] 10 mg PO MOWEFR 04/27/17 04/27/17 hydrOXYzine HCl [Hydroxyzine HCl] 25 mg PO TID PRN 04/27/17 04/27/17 hydroCHLOROthiazide 12.5 mg PO DAILY 04/27/17 04/27/17 [Hydrochlorothiazide] Previous Rx's Medication Instructions Recorded Enoxaparin [Lovenox] 140 mg SQ Q12H #10 syringe 04/30/17 OxyCODONE/APAP 10/325 [Percocet 1 each PO Q6HR PRN #24 tablet 04/30/17 10/325 MG] HYDROcodone/Acet 5/325 mg [[place] 1 tab PO Q4H PRN #15 tab 05/06/17 5-325 mg] Allergies Allergy/AdvReac Type Severity Reaction Status Date / Time morphine Allergy Itching Verified 04/27/17 08:40 amlodipine [From Norvasc] AdvReac See Verified 04/27/17 08:40 Comments metoclopramide [From Reglan] AdvReac Anxiety Verified 04/27/17 08:40 naproxen AdvReac Nausea Verified 04/27/17 08:40 Constitutional: Reports: fever, chills, weakness. Denies: weight change Eyes: Denies: eye pain, eye discharge, vision change ENT ED: Denies: ear pain, throat pain, dental pain, hearing loss, epistaxis, congestion, dysphagia Cardiovascular: Denies: chest pain, palpitations, dyspnea on exertion, edema, syncope Respiratory: Denies: cough, dyspnea, wheezes, hemoptysis, stridor Gastrointestinal: Reports: abdominal pain, nausea. Denies: vomiting, diarrhea, constipation, hematemesis, melena, hematochezia Genitourinary: Denies: dysuria, frequency, hematuria, discharge Musculoskeletal: Denies: back pain, neck pain, arthralgia, myalgia Integumentary: Reports: as per HPI. Denies: rash, abrasion, lesions Neurological: Denies: headache, weakness, numbness, paresthesias, confusion, abnormal gait, vertigo Psychiatric: Denies: anxiety, depression, suicidal thoughts, homicidal thoughts , auditory hallucinations, visual hallucinations Endocrine: Denies: fatigue Hematological/Lymphatic: Denies: easy bleeding, easy bruising Allergic/Immunologic: Denies: facial swelling, urticaria Past Medical History - Past Medical History Medical history: Reports: DVT, diabetes, hypertension, kidney stones, other Surgical history: Reports: breast surgery Psychiatric history: Reports: depression [employer] history: Reports: no [employer] history - Social History Smoking Status: Never smoker Smokeless Tobacco Status: No Alcohol use: Reports: occasionally Drug use: Reports: none Physical Exam - General Limitations: no limitations General appearance: alert, in no apparent distress, obese - Head Head exam: atraumatic, normocephalic, normal inspection - Eye Eye exam: Present: normal appearance, PERRL, EOMI - Expanded Eye Exam Pupils: Bilateral: reactive - ENT ENT exam: normal exam, normal oropharynx, mucous membranes moist - Expanded ENT Exam External ear exam: Present: normal external inspection Mouth exam: Present: normal external inspection Teeth exam: Present: normal inspection Throat exam: Present: normal inspection - Neck Neck exam: Present: normal inspection, full ROM, trachea midline - Chest Chest inspection: Present: normal inspection, symmetric chest wall rise - Respiratory Respiratory exam: Present: normal lung sounds bilaterally - Cardiovascular Cardiovascular exam: Present: regular rate, normal rhythm, normal heart sounds - Abdominal Exam Abdominal exam: Present: soft, tenderness, scar (surgical wound to the superior area of the umbilical of the laproscopic incision with packing that showes grreenish discahrge that is thick. surrounding eryhtatous changes with cellulitic changes. ). Absent: Non-Tender, distention, guarding, rebound, rigidity - Extremities Exam Extremities exam: Present: normal inspection, full ROM. Absent: tenderness, pedal edema - Expanded Upper Extremity Exam Shoulder exam: Present: normal inspection, full ROM Arm exam: Present: normal inspection, full ROM Elbow exam: Present: normal inspection, full ROM Forearm/Wrist exam: Present: normal inspection, full ROM Hand exam: Present: normal inspection, full ROM Vascular exam: Normal: capillary refill, radial pulse - Expanded Lower Extremity Exam Hip/Pelvis exam: Present: normal inspection, full ROM Upper leg exam: Present: normal inspection, full ROM Knee exam: Present: normal inspection, full ROM Lower leg exam: Present: normal inspection, full ROM Ankle exam: Present: normal inspection, full ROM Foot/toe exam: Present: normal inspection, full ROM Neurovascular/Tendon exam: Absent: motor deficit, sensory deficit, tendon deficit - Back Exam Back exam: Present: normal inspection, full ROM. Absent: tenderness - Neurological Exam Neurological exam: Present: alert, oriented X3 - Expanded Neurological Exam Patient oriented to: Present: person, place, time Coma Scale Eye Opening: Spontaneous Coma Scale Motor Response: Obeys Commands Coma Scale Verbal Response: Oriented Coma Scale Total: 15 - Psychiatric Psychiatric exam: Present: normal affect, normal mood - Skin Skin exam: Present: warm, dry, intact, normal color Course Course Narrative: we will do ABCT with IV contrast and admit to medicine after consutling with surgery about this post-surgical abcses. IVF/ABX started. - Reevaluation(s) Reevaluation #1: kristopher is increasingly agitated and getting increasily more irritated stating that we are not addresing her needs. I have a clincal suspiscion that she is seekign although she may have a medical neccesity for her pain. WE is threatening to leave AMA and has asked us to remove the IV. I have explained to her the risks of leaving and she will stay if I give her a pain pill with narcotics for pain relief. I have explained to her that I will not be prescribing narcotics for pain therapy for home today. OARS report is concernign for seeking behavior Time: 00:21 - Consultations Consultation #1: signed kristopher out to Dr. Oliva. Plan is to followup on the CT, consult surgery and either admit to their sevice or medicine. PAtient is stable. Time: 00:48 Vital Signs Temperature 99.0 F 05/09/17 22:24 Pulse Rate 92 05/09/17 22:24 Respiratory Rate 16 05/09/17 22:24 Blood Pressure 149/94 05/09/17 22:24 O2 Sat by Pulse Oximetry 94 05/09/17 22:24 Temperature 99.0 F 05/09/17 22:24 Pulse Rate 80 05/10/17 00:37 Respiratory Rate 18 05/10/17 00:37 Blood Pressure 136/73 05/10/17 00:37 O2 Sat by Pulse Oximetry 98 05/10/17 00:37 Oxygen Delivery Oxygen Delivery Room Air Medical Decision Making - Medical Records Medical records reviewed: Yes I reviewed the patient's medical records. - Lab Data Lab results reviewed: Yes I reviewed the patient's lab results. Result diagrams: 05/09/17 23:15 05/09/17 23:15 Lab Results 05/09/17 05/09/17 05/09/17 Range/Units 23:15 23:15 23:15 WBC 12.6 H (4.3-11.1) K/mcL RBC 4.63 (3.82-4.97) M/mcL Hgb 13.1 (11.5-15.4) g/dL Hct 40.1 (35.3-44.9) % MCV 86.6 (83.0-100.0) fL MCH 28.3 (28.0-33.3) pg MCHC 32.7 (31.6-35.5) g/dL RDW 14.4 (11.5-14.5) % Plt Count 506 H (140-400) K/mcL MPV 9.3 L (9.4-12.4) fL Immature Gran % 0.5 (0-4) % Seg Neutrophils % 70.0 % Lymphocytes % 21.5 % Monocytes % 5.8 % Eosinophils % 1.9 % Basophils % 0.3 % Neutrophils # 8.8 (1.6-8.9) K/mcL Lymphocytes # 2.7 (0.6-4.6) K/mcL Monocytes # 0.7 (0.0-1.3) K/mcL Eosinophils # 0.2 (0.0-0.6) K/mcL Basophils # 0.0 (0.0-0.2) K/mcL PT 29.6 H (9.4-12.1) Seconds INR 2.7 APTT 45.7 H (26.0-36.0) Seconds Sodium (136-145) mEq/L Potassium (3.5-4.5) mEq/L Chloride (98-109) mEq/L Carbon Dioxide (19-29) mEq/L BUN (7-20) mg/dL Creatinine (0.57-1.11) mg/dL Est GFR ( Amer) (> 60) Est GFR (Non-Af Amer) (> 60) BUN/Creatinine Ratio (6-26) Glucose (70-99) mg/dL Calculated Osmolality (280-300) Lactic Acid 2.7 H (0.5-2.2) mmol/L Calcium (8.6-10.8) mg/dL Total Bilirubin (0.2-1.2) mg/dL Direct Bilirubin (0.0-0.5) mg/dL Indirect Bilirubin (0.0-1.2) mg/dL AST (5-34) Units/L ALT (0-55) Units/L Alkaline Phosphatase (38-126) Units/L Serum Total Protein (6.0-8.3) g/dL Albumin (3.5-5.0) g/dL Globulin (2.4-3.5) g/dL Albumin/Globulin Ratio (1.1-2.2) Amylase (25-125) Units/L Lipase (8-78) Units/L Urine Color (Yellow) Urine Clarity (Clear) Urine pH (5.0-8.0) pH Units Ur Specific [place] (1.010-1.025) Urine Protein (Neg-Trace) mg/dL Urine Glucose (UA) (Normal) mg/dL Urine Ketones (Negative) mg/dL Urine Blood (Negative) Urine Nitrite (Negative) Urine Bilirubin (Negative) Urine Urobilinogen (Normal) mg/dL Ur Leukocyte Esterase (Negative) Urine Microscopic RBC (0-3) per hpf Urine Microscopic WBC (0-3) per hpf Ur Squamous Epith Cells (None-Few) per lpf Urine Bacteria (None-Few) per hpf Hyaline Casts (None-Few) per lpf Ur Culture Indicated? (NO) 05/09/17 05/10/17 Range/Units 23:15 00:00 WBC (4.3-11.1) K/mcL RBC (3.82-4.97) M/mcL Hgb (11.5-15.4) g/dL Hct (35.3-44.9) % MCV (83.0-100.0) fL MCH (28.0-33.3) pg MCHC (31.6-35.5) g/dL RDW (11.5-14.5) % Plt Count (140-400) K/mcL MPV (9.4-12.4) fL Immature Gran % (0-4) % Seg Neutrophils % % Lymphocytes % % Monocytes % % Eosinophils % % Basophils % % Neutrophils # (1.6-8.9) K/mcL Lymphocytes # (0.6-4.6) K/mcL Monocytes # (0.0-1.3) K/mcL Eosinophils # (0.0-0.6) K/mcL Basophils # (0.0-0.2) K/mcL PT (9.4-12.1) Seconds INR APTT (26.0-36.0) Seconds Sodium 140 (136-145) mEq/L Potassium 4.4 (3.5-4.5) mEq/L Chloride 102 (98-109) mEq/L Carbon Dioxide 30 H (19-29) mEq/L BUN 14 (7-20) mg/dL Creatinine 0.80 (0.57-1.11) mg/dL Est GFR ( Amer) > 60 (> 60) Est GFR (Non-Af Amer) > 60 (> 60) BUN/Creatinine Ratio 18 (6-26) Glucose 130 H (70-99) mg/dL Calculated Osmolality 292 (280-300) Lactic Acid (0.5-2.2) mmol/L Calcium 9.6 (8.6-10.8) mg/dL Total Bilirubin 0.3 (0.2-1.2) mg/dL Direct Bilirubin 0.1 (0.0-0.5) mg/dL Indirect Bilirubin 0.2 (0.0-1.2) mg/dL AST 13 (5-34) Units/L ALT 24 (0-55) Units/L Alkaline Phosphatase 144 H (38-126) Units/L Serum Total Protein 7.5 (6.0-8.3) g/dL Albumin 3.3 L (3.5-5.0) g/dL Globulin 4.2 H (2.4-3.5) g/dL Albumin/Globulin Ratio 0.8 L (1.1-2.2) Amylase 48 (25-125) Units/L Lipase 19 (8-78) Units/L Urine Color Yellow (Yellow) Urine Clarity Turbid A (Clear) Urine pH 6.5 (5.0-8.0) pH Units Ur Specific [place] 1.023 (1.010-1.025) Urine Protein Trace (Neg-Trace) mg/dL Urine Glucose (UA) Normal (Normal) mg/dL Urine Ketones Negative (Negative) mg/dL Urine Blood Trace H (Negative) Urine Nitrite Negative (Negative) Urine Bilirubin Negative (Negative) Urine Urobilinogen Normal (Normal) mg/dL Ur Leukocyte Esterase Large H (Negative) Urine Microscopic RBC 0-3 (0-3) per hpf Urine Microscopic WBC TNTC H (0-3) per hpf Ur Squamous Epith Cells Many H (None-Few) per lpf Urine Bacteria Many H (None-Few) per hpf Hyaline Casts None Seen (None-Few) per lpf Ur Culture Indicated? YES A (NO) - Radiology Data Radiology results reviewed: Yes I reviewed the patient's radiology results. - EKG Data EKG #1 EKG attestation: Yes I reviewed and interpreted this EKG. EKG results narrative: NSR with rate of 77. NO STEMI. normal itnerals. no old ekg. 1709
[2017-05-09] MEDS ORDERED: Vancomycin 1,000 MG in D5% in Water 250 ML IVPB ONE (23:23)
[2017-05-09] MEDS ORDERED: Piperacillin/Tazobactam 3.375 GM in 0.9 % Sodium Chloride Mini Bag 100 ML IVPB ONE (23:23)
[2017-05-09 23:25] LABS: Basophils % 0.3 %; Eosinophils # 0.2 K/mcL (0.0-0.6); Eosinophils % 1.9 %; Hematocrit 40.1 % (35.3-44.9); Hemoglobin 13.1 g/dL (11.5-15.4); Immature Granulocytes % 0.5 % (0-4); Lymphocytes # 2.7 K/mcL (0.6-4.6); Lymphocytes % 21.5 %; Mean Corpuscular HGB Conc 32.7 g/dL (31.6-35.5); Mean Corpuscular Hemoglobin 28.3 pg (28.0-33.3); Mean Corpuscular Volume 86.6 fL (83.0-100.0); Mean Platelet Volume 9.3 fL (9.4-12.4); Monocytes # 0.7 K/mcL (0.0-1.3); Monocytes % 5.8 %; Neutrophils # 8.8 K/mcL (1.6-8.9); Platelet Count 506 K/mcL (140-400); Red Blood Count 4.63 M/mcL (3.82-4.97); Red Cell Distribution Width 14.4 % (11.5-14.5)
[2017-05-09 23:32] LABS: INR 2.7; Prothrombin Time 29.6 Seconds (9.4-12.1)
[2017-05-09 23:35] LABS: Activated Partial Thrombo Time 45.7 Seconds (26.0-36.0)
[2017-05-09 23:39] LABS: Alanine Aminotransferase 24 Units/L (0-55); Albumin 3.3 g/dL (3.5-5.0); Albumin/Globulin Ratio 0.8 (1.1-2.2); Alkaline Phosphatase 144 Units/L (38-126); Amylase 48 Units/L (25-125); Aspartate Amino Transferase 13 Units/L (5-34); BUN/Creatinine Ratio 18 (6-26); Bilirubin,Direct 0.1 mg/dL (0.0-0.5); Bilirubin,Indirect 0.2 mg/dL (0.0-1.2); Bilirubin,Total 0.3 mg/dL (0.2-1.2); Blood Urea Nitrogen 14 mg/dL (7-20); Calcium 9.6 mg/dL (8.6-10.8); Carbon Dioxide 30 mEq/L (19-29); Chloride 102 mEq/L (98-109); Globulin 4.2 g/dL (2.4-3.5); Glucose 130 mg/dL (70-99); Lipase 19 Units/L (8-78); Osmolality,Calculated 292 (280-300); Potassium 4.4 mEq/L (3.5-4.5); Sodium 140 mEq/L (136-145); Total Protein 7.5 g/dL (6.0-8.3); eGFR For African Americans > 60 (> 60); eGFR For Non-African Americans > 60 (> 60)
[2017-05-10 00:10] LABS: Bilirubin,Urine Negative (Negative); Blood,Urine Trace (Negative); Clarity,Urine Turbid (Clear); Color,Urine Yellow (Yellow); Glucose,Urine (UA) Normal (Normal); Ketones,Urine Negative (Negative); Leukocyte Esterase,Urine Large (Negative); Nitrite,Urine Negative (Negative); PH,Urine 6.5 pH Units (5.0-8.0); Protein,Urine Trace mg/dL (Neg-Trace); Specific Gravity,Urine 1.023 (1.010-1.025); Urobilinogen,Urine Normal (Normal)
[2017-05-10 00:12] LABS: Bacteria,Urine Many per hpf (None-Few); Hyaline Casts,Urine None Seen per lpf (None-Few); Squamous Epithelial Cell,Urine Many per lpf (None-Few); WBC,Urine TNTC per hpf (0-3)
[2017-05-10] MEDS ORDERED: *HR* OxyCODONE/APAP 5/325 TABLET PO ONE (00:19)
[2017-05-10 00:23] LABS: RBC,Urine 0-3 per hpf (0-3)
[2017-05-10] MEDS ORDERED: *HR* HYDROmorphone (PF) 1 MG/ML SYRINGE IVP ONE ×2 (00:47→02:45)
[2017-05-10] MEDS ORDERED: 0.9 % Sodium Chloride 1,000 ML IVC ONE (00:47)
[2017-05-10] MEDS ORDERED: D5% in Water 1,000 ML IVC PRN (05:08)
[2017-05-10] MEDS ORDERED: Dextrose Gel 15 GM PO PRN ×2 (05:08)
[2017-05-10] MEDS ORDERED: *HR* Dextrose 50 % in Water (Syg) 50 ML SYRINGE IVP PRN (05:08)
[2017-05-10] MEDS ORDERED: *HR* OxyCODONE/APAP 7.5/325 TABLET PO PRN (05:11)
[2017-05-10] MEDS ORDERED: Piperacillin/Tazobactam 3.375 GM in 0.9 % Sodium Chloride Mini Bag 100 ML IVPB SCH (08:00)
[2017-05-10] MEDS: Insulin LISPRO 300 UNITS/3 ML VIAL SQ SCH ×3 (10:01→17:32)
[2017-05-10] MEDS: *HR* Metformin 500 MG TABLET PO SCH ×3 (10:05→17:32)
[2017-05-10] MEDS: hydroCHLOROthiazide 25 MG TABLET PO SCH ×2 (10:14→17:30)
[2017-05-10] MEDS ORDERED: *HR* HYDROmorphone (PF) 1 MG/ML SYRINGE IVP PRN (11:12)
[2017-05-10] MEDS ORDERED: Acetaminophen 325 MG TABLET PO PRN (11:12)
[2017-05-10 11:38] LABS: Basophils % 0.3 %; Eosinophils # 0.3 K/mcL (0.0-0.6); Eosinophils % 2.8 %; Hematocrit 36.9 % (35.3-44.9); Hemoglobin 11.8 g/dL (11.5-15.4); Immature Granulocytes % 0.6 % (0-4); Lymphocytes # 2.1 K/mcL (0.6-4.6); Lymphocytes % 21.8 %; Mean Corpuscular Hemoglobin 28.2 pg (28.0-33.3); Mean Corpuscular Volume 88.1 fL (83.0-100.0); Mean Platelet Volume 9.3 fL (9.4-12.4); Monocytes # 0.6 K/mcL (0.0-1.3); Monocytes % 6.1 %; Neutrophils # 6.5 K/mcL (1.6-8.9); Platelet Count 438 K/mcL (140-400); Red Blood Count 4.19 M/mcL (3.82-4.97); Red Cell Distribution Width 14.5 % (11.5-14.5); Segmented Neutrophils % 68.4 %
[2017-05-10 11:50] LABS: BUN/Creatinine Ratio 13 (6-26); Blood Urea Nitrogen 10 mg/dL (7-20); Calcium 8.4 mg/dL (8.6-10.8); Carbon Dioxide 23 mEq/L (19-29); Chloride 104 mEq/L (98-109); Glucose 120 mg/dL (70-99); Osmolality,Calculated 280 (280-300); Sodium 135 mEq/L (136-145); eGFR For African Americans > 60 (> 60); eGFR For Non-African Americans > 60 (> 60)
[2017-05-10] MEDS: *HR* OxyCODONE/APAP 7.5/325 TABLET PO PRN ×3 (11:50→23:10)
--- NOTE | 2017-05-10 15:56 | General Surg History&Physical ---
Date of Encounter: 05/10/17 Time of Encounter: 15:54 Assessment and Plan (1) Wound infection after surgery Current Visit: Yes Status: Acute infection of umbilical incision; currently open with purulent drainage; CT scan demonstrates fluid collection; - changed wound dressing at bedside: saline, guaze, tegaderm - IV abx - AM abx - pain control - diet as tolerated - restart home meds - no acute surgery The assessment and plan as outlined above was discussed with the patient and/or family members who expressed understanding and agreement. All questions were answered. Qualifiers: Encounter type: initial encounter Qualified Code(s): T81.4XXA - Infection following a procedure, initial encounter History of Present Illness Chief complaint: drainage from wound HPI: Ms. Drew is a 42 year old female h/o obesity, factor V leiden requiring anticoagulation with coumadin who is now s/p lap geoffrey who presents with purulent drainage. She was recently evaluated in the ED for serosanguinous drainage, but not comes with pain and purulent drainage. She reports a fever of 101. No associated chills, PO intolerance, chest pain nor shortness of breath. Past Med Surg Social Fam HX - Past Medical History Medical history: DVT, diabetes, hypertension, kidney stones, other Psychiatric history: depression - Past Surgical History Surgical History: breast surgery, cholecystectomy - Social History Smoking Status: Never smoker Smokeless Tobacco Status: No Alcohol use: occasionally Drug use: none - Family History Mother Living Status: Hx Family Endocrine Disorder: Yes (DM) Father Living Status: Hx Family Cardiac Disorders: Yes Maternal Grandmother Living Status: Hx Family Cancer: Yes (breast, brain) Medications and Allergies Atenolol [Tenormin] 25 mg PO DAILY 04/27/17 [History] Dicyclomine [Bentyl] 20 mg PO QID 04/27/17 [History] Duloxetine HCl [Cymbalta] 60 mg PO BID 04/27/17 [History] Lactose-Reduced Food [Ensure Active Clear] 1 bottle PO AD 04/27/17 [History] Losartan Potassium [Cozaar] 100 mg PO DAILY 04/27/17 [History] Metformin HCl [Metformin HCl ER] 500 mg PO BID 04/27/17 [History] Ondansetron [Zofran] 8 mg PO QID PRN 04/27/17 [History] Warfarin [Coumadin] 7.5 mg PO SUTUTHSA 04/27/17 [History] Warfarin [Coumadin] 10 mg PO MOWEFR 04/27/17 [History] hydrOXYzine HCl [Hydroxyzine HCl] 25 mg PO TID PRN 04/27/17 [History] hydroCHLOROthiazide [Hydrochlorothiazide] 12.5 mg PO DAILY 04/27/17 [History] Enoxaparin [Lovenox] 140 mg SQ Q12H #10 syringe 04/30/17 [Rx] HYDROcodone/Acet 5/325 mg [[place] 5-325 mg] 1 tab PO Q4H PRN #15 tab 05/06/17 [Rx ] 3 Allergy/AdvReac Type Severity Reaction Status Date / Time morphine Allergy Itching Verified 05/10/17 08:47 amlodipine [From Norvasc] AdvReac See Verified 05/10/17 08:47 Comments metoclopramide [From Reglan] AdvReac Anxiety Verified 05/10/17 08:47 naproxen AdvReac Nausea Verified 05/10/17 08:47 Review of Systems All systems PM: A 10-system review of systems was performed and is negative for pertinent findings except as documented above in the HPI. General Surgery Exam Initial Vital Signs Temp Pulse Resp BP Pulse Ox 99.0 F 92 16 149/94 94 05/09/17 22:24 05/09/17 22:24 05/09/17 22:24 05/09/17 22:24 05/09/17 22:24 - General physical appearance well developed, well nourished, no distress - Eyes other (no scleral icterus) - ENT normocephalic - Respiratory normal expansion, normal respiratory effort - Cardiovascular Cardiovascular exam: Present: RRR - Abdomen Abdomen general surgery: Present: soft, tender (at umbilical wound), surgical scars - Incision Incision: Present: open - Integumentary Integumentary general surgery: Present: warm and dry - Neurologic Present: CN 2-12 grossly intact - Musculoskeletal Present: other (FROM in UE/LE bilaterally) - Psychiatric Psychiatric general surgery: Present: A&Ox3 Results - Labs 05/10/17 11:23 05/10/17 11:23 Abnormal lab results Plt Count 438 K/mcL (140-400) H 05/10/17 11:23 MPV 9.3 fL (9.4-12.4) L 05/10/17 11:23 PT 29.6 Seconds (9.4-12.1) H 05/09/17 23:15 APTT 45.7 Seconds (26.0-36.0) H 05/09/17 23:15 Sodium 135 mEq/L (136-145) L 05/10/17 11:23 Glucose 120 mg/dL (70-99) H 05/10/17 11:23 POC Glucose 117 (58-89) H 05/10/17 11:56 Calcium 8.4 mg/dL (8.6-10.8) L 05/10/17 11:23 Alkaline Phosphatase 144 Units/L (38-126) H 05/09/17 23:15 Albumin 3.3 g/dL (3.5-5.0) L 05/09/17 23:15 Globulin 4.2 g/dL (2.4-3.5) H 05/09/17 23:15 Albumin/Globulin Ratio 0.8 (1.1-2.2) L 05/09/17 23:15 Urine Clarity Turbid (Clear) A 05/10/17 00:00 Urine Blood Trace (Negative) H 05/10/17 00:00 Ur Leukocyte Esterase Large (Negative) H 05/10/17 00:00 Urine Microscopic WBC TNTC per hpf (0-3) H 05/10/17 00:00 Ur Squamous Epith Cells Many per lpf (None-Few) H 05/10/17 00:00 Urine Bacteria Many per hpf (None-Few) H 05/10/17 00:00 Ur Culture Indicated? YES (NO) A 05/10/17 00:00 Diabetes panel 05/10/17 Range/Units 11:23 Sodium 135 L (136-145) mEq/L Potassium 4.0 (3.5-4.5) mEq/L Chloride 104 (98-109) mEq/L Carbon Dioxide 23 (19-29) mEq/L BUN 10 (7-20) mg/dL Creatinine 0.76 (0.57-1.11) mg/dL Glucose 120 H (70-99) mg/dL Calcium 8.4 L (8.6-10.8) mg/dL Calcium panel 05/10/17 Range/Units 11:23 Calcium 8.4 L (8.6-10.8) mg/dL Pituitary panel 05/10/17 Range/Units 11:23 Sodium 135 L (136-145) mEq/L Potassium 4.0 (3.5-4.5) mEq/L Chloride 104 (98-109) mEq/L Carbon Dioxide 23 (19-29) mEq/L BUN 10 (7-20) mg/dL Creatinine 0.76 (0.57-1.11) mg/dL Glucose 120 H (70-99) mg/dL Calcium 8.4 L (8.6-10.8) mg/dL Adrenal panel 05/10/17 Range/Units 11:23 Sodium 135 L (136-145) mEq/L Potassium 4.0 (3.5-4.5) mEq/L Chloride 104 (98-109) mEq/L Carbon Dioxide 23 (19-29) mEq/L BUN 10 (7-20) mg/dL Creatinine 0.76 (0.57-1.11) mg/dL Glucose 120 H (70-99) mg/dL Calcium 8.4 L (8.6-10.8) mg/dL All other labs normal. - Imaging CT scan - abdomen: report reviewed, image reviewed CT scan - pelvis: report reviewed, image reviewed
[2017-05-10] MEDS ORDERED: hydrOXYzine pamoate 25 MG CAPSULE PO PRN (15:59)
[2017-05-10] MEDS ORDERED: Ondansetron ODT 4 MG TAB.RAPDIS PO PRN (15:59)
[2017-05-10] MEDS: Piperacillin/Tazobactam 3.375 GM/200 ML BAG IVPB SCH (18:45)
[2017-05-10] MEDS ORDERED: Insulin LISPRO 300 UNITS/3 ML VIAL SQ SCH (21:00)
[2017-05-11] MEDS: Piperacillin/Tazobactam 3.375 GM/200 ML BAG IVPB SCH ×2 (03:09→11:26)
--- NOTE | 2017-05-11 07:40 | Discharge Summary ---
<Prashanth Florence - Last Filed: 05/11/17 07:37> Date of Encounter: 05/11/17 Time of Encounter: 07:37 - Discharge Diagnosis (1) Wound infection after surgery Status: Acute Comments: more serous drainage than purulent wbc wnl with IV abx diet and pain as tolerated transition to PO abx: augmentin x 5 days d/c today with follow up in wound clinic on 05/17 patient feels comfortable with dressing changes at home Qualifiers: Encounter type: subsequent encounter Qualified Code(s): T81.4XXD - Infection following a procedure, subsequent encounter - Discharge Medications Prescriptions: Amoxicillin/Clavulanate [Augmentin] 875 mg PO BIDWM 5 Days #10 tablet Home Medications: Atenolol [Tenormin] 25 mg PO DAILY 04/27/17 [History] Dicyclomine [Bentyl] 20 mg PO QID 04/27/17 [History] Duloxetine HCl [Cymbalta] 60 mg PO BID 04/27/17 [History] Lactose-Reduced Food [Ensure Active Clear] 1 bottle PO AD 04/27/17 [History] Losartan Potassium [Cozaar] 100 mg PO DAILY 04/27/17 [History] Metformin HCl [Metformin HCl ER] 500 mg PO BID 04/27/17 [History] Ondansetron [Zofran] 8 mg PO QID PRN 04/27/17 [History] Warfarin [Coumadin] 7.5 mg PO SUTUTHSA 04/27/17 [History] Warfarin [Coumadin] 10 mg PO MOWEFR 04/27/17 [History] hydrOXYzine HCl [Hydroxyzine HCl] 25 mg PO TID PRN 04/27/17 [History] hydroCHLOROthiazide [Hydrochlorothiazide] 12.5 mg PO DAILY 04/27/17 [History] Enoxaparin [Lovenox] 140 mg SQ Q12H #10 syringe 04/30/17 [Rx] HYDROcodone/Acet 5/325 mg [[place] 5-325 mg] 1 tab PO Q4H PRN #15 tab 05/06/17 [Rx ] Amoxicillin/Clavulanate [Augmentin] 875 mg PO BIDWM 5 Days #10 tablet 05/11/17 [ Rx] Allergies/Adverse Reactions: 3 Allergy/AdvReac Type Severity Reaction Status Date / Time morphine Allergy Itching Verified 05/10/17 08:47 amlodipine [From Norvasc] AdvReac See Verified 05/10/17 08:47 Comments metoclopramide [From Reglan] AdvReac Anxiety Verified 05/10/17 08:47 naproxen AdvReac Nausea Verified 05/10/17 08:47 General Surgery Exam Initial Vital Signs Temp Pulse Resp BP Pulse Ox 99.0 F 92 16 149/94 94 05/09/17 22:24 05/09/17 22:24 05/09/17 22:24 05/09/17 22:24 05/09/17 22:24 - General physical appearance well developed, well nourished - Eyes normal ocular movement - ENT normocephalic - Neck no masses, no lymphadectomy - Respiratory normal expansion, normal respiratory effort - Cardiovascular Cardiovascular exam: Present: RRR - Abdomen Abdomen general surgery: Present: bowel sounds present, soft, non tender - Incision Incision: Present: serous, serosanguinous, open - Integumentary Integumentary general surgery: Present: warm and dry - Musculoskeletal Present: other (FROM in UE/LE bilaterally) - Psychiatric Psychiatric general surgery: Present: A&Ox3 Date of admission: 05/10/17 02:51 Primary care physician: [facility] Discharging clinician: Prashanth Florence Anticipated date of discharge: 05/11/17 - Patient Status Disposition: Home, Self-Care Condition: Good Functional capacity at discharge: independent ambulation Overall status at discharge: patient is back to baseline - Discharge Instructions Follow Up With: Prashanth Florence MD [Non-Partnered Physician] - 05/17/17 (Please make an appointment for patient in [facility] Wound care on 05/[address] Florence) Additional Instructions: Activity As tolerated. Diet As tolerated. Warnings If you experience significant redness around the incision or drainage from the incision that is purulent or malodorous, or you experience fevers, chills, or food intolerance (including nausea, vomiting, abdominal pain or distension), jaundice or yellow skin, eyes, tongue/cheek, or any symptoms you feel warrant evaluation, please call the office. If unable to reach the office, please go to nearest urgent care center or emergency department follow up in wound clinic on 05/17 - Diet and Activity Activity: resume usual activities as tolerated Diet: advance to your usual diet - Hospital Course Hospital course: Ms. 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 She was given 24hrs of IV antibiotics with normalization of wbc; She met discharge criteria after 24hours when she felt comfortable with dressing changes , was able to tolerate a diet, and voiding on her own with no reports of pain; - Time Spent with Patient Total time spent providing and/or coordinating discharge services: Greater than 30 minutes Labs on day of discharge: Labs from last 24 hours 05/10/17 05/10/17 05/10/17 20:06 16:15 11:56 WBC RBC Hgb Hct MCV MCH MCHC RDW Plt Count MPV Immature Gran % Seg Neutrophils % Lymphocytes % Monocytes % Eosinophils % Basophils % Neutrophils # Lymphocytes # Monocytes # Eosinophils # Basophils # Sodium Potassium Chloride Carbon Dioxide BUN Creatinine Est GFR ( Amer) Est GFR (Non-Af Amer) BUN/Creatinine Ratio Glucose POC Glucose 160 H 145 H 117 H Calculated Osmolality Lactic Acid Calcium 05/10/17 05/10/17 05/10/17 11:23 11:23 11:23 WBC 9.6 RBC 4.19 Hgb 11.8 Hct 36.9 MCV 88.1 MCH 28.2 MCHC 32.0 RDW 14.5 Plt Count 438 H MPV 9.3 L Immature Gran % 0.6 Seg Neutrophils % 68.4 Lymphocytes % 21.8 Monocytes % 6.1 Eosinophils % 2.8 Basophils % 0.3 Neutrophils # 6.5 Lymphocytes # 2.1 Monocytes # 0.6 Eosinophils # 0.3 Basophils # 0.0 Sodium 135 L Potassium 4.0 Chloride 104 Carbon Dioxide 23 BUN 10 Creatinine 0.76 Est GFR ( Amer) > 60 Est GFR (Non-Af Amer) > 60 BUN/Creatinine Ratio 13 Glucose 120 H POC Glucose Calculated Osmolality 280 Lactic Acid 1.2 Calcium 8.4 L 05/10/17 09:58 WBC RBC Hgb Hct MCV MCH MCHC RDW Plt Count MPV Immature Gran % Seg Neutrophils % Lymphocytes % Monocytes % Eosinophils % Basophils % Neutrophils # Lymphocytes # Monocytes # Eosinophils # Basophils # Sodium Potassium Chloride Carbon Dioxide BUN Creatinine Est GFR ( Amer) Est GFR (Non-Af Amer) BUN/Creatinine Ratio Glucose POC Glucose 140 H Calculated Osmolality Lactic Acid Calcium <Jennifer Espana L - Last Filed: 05/11/17 07:54> Date of Encounter: 05/11/17 General Surgery Exam Initial Vital Signs Temp Pulse Resp BP Pulse Ox 99.0 F 92 16 149/94 94 05/09/17 22:24 05/09/17 22:24 05/09/17 22:24 05/09/17 22:24 05/09/17 22:24 Date of admission: 05/10/17 02:51 Primary care physician: [facility] - Hospital Course Hospital course: Ms. Drew is a 42 year old female - Time Spent with Patient Total time spent providing and/or coordinating discharge services: Labs on day of discharge: Labs from last 24 hours 05/10/17 05/10/17 05/10/17 20:06 16:15 11:56 WBC RBC Hgb Hct MCV MCH MCHC RDW Plt Count MPV Immature Gran % Seg Neutrophils % Lymphocytes % Monocytes % Eosinophils % Basophils % Neutrophils # Lymphocytes # Monocytes # Eosinophils # Basophils # Sodium Potassium Chloride Carbon Dioxide BUN Creatinine Est GFR ( Amer) Est GFR (Non-Af Amer) BUN/Creatinine Ratio Glucose POC Glucose 160 H 145 H 117 H Calculated Osmolality Lactic Acid Calcium 05/10/17 05/10/17 05/10/17 11:23 11:23 11:23 WBC 9.6 RBC 4.19 Hgb 11.8 Hct 36.9 MCV 88.1 MCH 28.2 MCHC 32.0 RDW 14.5 Plt Count 438 H MPV 9.3 L Immature Gran % 0.6 Seg Neutrophils % 68.4 Lymphocytes % 21.8 Monocytes % 6.1 Eosinophils % 2.8 Basophils % 0.3 Neutrophils # 6.5 Lymphocytes # 2.1 Monocytes # 0.6 Eosinophils # 0.3 Basophils # 0.0 Sodium 135 L Potassium 4.0 Chloride 104 Carbon Dioxide 23 BUN 10 Creatinine 0.76 Est GFR ( Amer) > 60 Est GFR (Non-Af Amer) > 60 BUN/Creatinine Ratio 13 Glucose 120 H POC Glucose Calculated Osmolality 280 Lactic Acid 1.2 Calcium 8.4 L 05/10/17 09:58 WBC RBC Hgb Hct MCV MCH MCHC RDW Plt Count MPV Immature Gran % Seg Neutrophils % Lymphocytes % Monocytes % Eosinophils % Basophils % Neutrophils # Lymphocytes # Monocytes # Eosinophils # Basophils # Sodium Potassium Chloride Carbon Dioxide BUN Creatinine Est GFR ( Amer) Est GFR (Non-Af Amer) BUN/Creatinine Ratio Glucose POC Glucose 140 H Calculated Osmolality Lactic Acid Calcium
[2017-05-11 07:58] VITALS: BP 150/83
[2017-05-11] MEDS: Insulin LISPRO 300 UNITS/3 ML VIAL SQ SCH (08:17)
[2017-05-11] MEDS: *HR* Metformin 500 MG TABLET PO SCH (08:22)
[2017-05-11] MEDS: hydroCHLOROthiazide 25 MG TABLET PO SCH ×2 (08:32)
[2017-05-11] MEDS: *HR* OxyCODONE/APAP 7.5/325 TABLET PO PRN (08:34)
[2017-05-11 09:13] LABS: INR 3.2; Prothrombin Time 35.8 Seconds (9.4-12.1)
--- NOTE | 2017-05-13 11:49 | Electrocardiograph Report ---
[address] [address] Test Date: 2017-05-09 Pat Name: Mily Drew Department: 104 Room: 3A13 Gender: F Pearl Glue Drier: BOYD : 1975 Requested By: Kary Rome Order Number: [id number] Reading MD: David Kyle Measurements Intervals [place] Rate: 77 P: 12 TX: 157 QRS: 3 QRSD: 105 T: 31 QT: 399 QTc: 431 Interpretive Statements SINUS RHYTHM Electronically Signed On 05-13-2017 11:47:31 EST by David Kyle
== END 2017-05-11 11:50 | disposition home or self-care (01) ==
LOC: 3ANU 20:52 → EMEROO 20:52 → 3ANU 05-10 03:30
PROVIDERS: ADMIT Surgery; ATTEND Surgery